=== PATIENT | female | born 1935 | race Caucasian/White ===

== ENCOUNTER 2019-02-17 16:20 | Emergency (ER) | payer SELFPAY ==
[~2019-02-17] VITALS: Ht 147.3 cm; Wt 49.9 kg
--- NOTE | 2019-02-17 17:00 | NUR ---
HEADACHE AND RIGHT EYE PAIN X 4 DAYS. PATIENT A/OX3, ESTONIAN SPEAKING, DAUGHTER AT BEDSIDE FOR TRANSLATION. ATTACHED TO THE MONITOR. NO DSITRESS NOTED.
[2019-02-17] MEDS ORDERED: IBUP-1953 PO (17:01)
[2019-02-17] MEDS ORDERED: TETRACAINE HCL/PF 0.5% UD 2 ML BOTTLE ONE (17:10)
[2019-02-17] MEDS ORDERED: FLUORESCEIN SODIUM OPHTH 1 EA STRIP ONE (17:10)
[2019-02-17] MEDS ORDERED: TETRACAINE HCL/PF 0.5% UD 2 ML BOTTLE RIGHTEYE ONE (17:30)
[2019-02-17] MEDS ORDERED: FLUORESCEIN SODIUM OPHTH 1 EA STRIP OP ONE (17:30)
--- NOTE | 2019-02-17 17:46 | NUR ---
Patient discharged to home in stable condition. Written and verbal after care instructions given. Patient verbalizes understanding of instruction.
[2019-02-17 17:47] VITALS: BP 123/61
== END 2019-02-17 17:48 | disposition home or self-care (01) ==
LOC: ER 16:25
DX: H16.001 Unspecified corneal ulcer, right eye (principal)